=== PATIENT | female | born 1995 | race Caucasian/White ===

== ENCOUNTER 2020-04-26 09:14 | Outpatient (CLI) | payer OTHER, SELFPAY ==
--- NOTE | 2020-04-26 11:00 | NEURO_ITS ---
PATIENT NUMBER: [id number] IMPRESSION: # Complains of paresthesia of right upper extremity # Normal nerve conduction study including f-waves # Normal needle exam # Clinical correlation recommended. MTDD
== END 2020-04-26 09:15 | disposition home or self-care (01) ==
PROVIDERS: PCP Nurse Practitioner Adult Health; Visit Provider Family Medicine
DX: R20.2 Paresthesia of skin (principal)
CPT/HCPCS: 95886; 95909

== ENCOUNTER → 2021-03-05 02:17 | Outpatient (CLI) | payer OTHER, SELFPAY ==
[2021-03-06 15:33] LABS: SARS-CoV-2 RNA PCR Negative
== END ==
PROVIDERS: PCP Nurse Practitioner Adult Health; Visit Provider Nurse Practitioner Adult Health
DX: J02.9 Acute pharyngitis, unspecified (principal); Z20.822 Contact with and (suspected) exposure to COVID-19
CPT/HCPCS: C9803; U0003; U0005

== ENCOUNTER 2023-05-27 08:11 | Outpatient (CLI) | payer OTHER, SELFPAY ==
[2023-05-27 18:34] LABS: Mean Corpuscular HGB Conc 32.5 g/dl (32-36); Mean Corpuscular Volume 89.1 fl (80-100); Platelet Count Result 323 k/mm3 (150-375); Red Blood Count 4.49 M/mm3 (4.2-5.4); Red Cell Distribution Width 13.2 % (11.5-14.5); White Blood Count 10.7 K/mm3 (4.5-10.0)
[2023-05-27 20:22] LABS: Hemoglobin A1C 4.8 % (<5.7)
[2023-05-27 21:28] LABS: Alanine Aminotransferase 14 U/L (6-35); Albumin Level 4.5 g/dL (3.5-5.1); Alkaline Phosphatase 58 U/L (38-126); Anion Gap 10 mmol/L (8-16); Aspartate Amino Transferase 24 U/L (14-36); Bilirubin,Total 0.7 mg/dL (0.2-1.3); Blood Urea Nitrogen 9 mg/dL (7-17); Calcium 9.1 mg/dL (8.4-10.2); Carbon Dioxide 26 mmol/L (22-30); Chloride 101 mmol/L (98-107); Cholesterol 194 mg/dL (0-200); Estimated Glomerular Filt Rate > 60; Glucose 82 mg/dL (65-110); HDL Direct 35 mg/dL; Potassium 4.1 mmol/L (3.4-5.0); Sodium 137 mmol/L (137-145); Triglycerides 136 mg/dL (<150)
[2023-05-27 21:38] LABS: LDL Cholesterol Direct 117 mg/dL
[2023-05-27 21:58] LABS: Thyroid Stimulating Hormone 0.845 uIU/mL (0.465-4.680)
== END 2023-05-27 08:12 | disposition home or self-care (01) ==
PROVIDERS: PCP Nurse Practitioner Adult Health; Visit Provider Nurse Practitioner Adult Health
DX: F41.9 Anxiety disorder, unspecified (principal); E11.9 Type 2 diabetes mellitus without complications; E55.9 Vitamin D deficiency, unspecified; E53.8 Deficiency of other specified B group vitamins
CPT/HCPCS: 36415; 80053; 80061; 82306; 82607; 83036; 84443; 85027

== ENCOUNTER 2025-04-22 07:46 | Emergency (ER) | payer OTHER, SELFPAY ==
--- OUTSIDE RECORDS SUMMARY | 2008-09-23 19:00 | XMS_ITS | Continuity of Care Document ---
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 [address] [place] [address], [id number], [place]. Family History Family Member Type Diagnosis Age At Onset No Information Immunizations Vaccine Date Status Comments DTAP administered Note: RA ; Sour ce: New Immunization Record [id number], PED/ADL administered Note: LA ; Source: N ew Immunization Record INJECTABLE POLIOVIRUS administered Note: RA ; Source: New Immunization Record HEP B VACCINE PED/ADOL administered Note: LA ; Source: New Immunization Record DTAP administered Note: RA ; Sour ce: New Immunization Record [id number], PED/ADL administered Note: LA ; Source: N ew Immunization Record ORAL POLIO administered Note: PO ; Sour ce: New Immunization Record HEP B VACCINE PED/ADOL administered Note: LA ; Source: New Immunization Record Payers Payer name Insurance type Covered democrat ID Authoriza tion(s) No Information Social History Type Description Quantity Date Captured Comments Sex Female Smoking Status No Information Chief Complaint And Reason For Visit No Information History Of Present Illness Encounter Date Complaint History Of Prese nt Illness No Information Instructions Date Instruction Additional Infor rubyion No Information Assessments Type Assessment Date No Information Patient Care Teams Name Effective Dates (start - stop) Status Members No Information
--- NOTE | ~2025-04-22 | XR_ITS ---
Examination: XR chest 2V Clinical History: Possible aspiration Comparison: None Technique: PA and Lateral Findings: Cardiomediastinal silhouette normal size and configuration. Lungs clear. No acute bony abnormality. IMPRESSION: 1. No acute cardiopulmonary findings. Reviewed, dictated and finalized at location R.
[2025-04-22 07:55] VITALS: BP 141/85; PULSE 94; RESP 18; TEMP 36.4; O2SAT 100
--- OUTSIDE RECORDS SUMMARY | 2025-04-22 09:25 | XMS_ITS | Clinical Summary ---
Author Organization [facility] [address] Address [address] [place] [address] Care Team Providers Care Residential Construction Instructor Name Role Phone Chata Guaman NP Primary Care Provider [phone] Allergies No known active allergies Medications cholecalciferol (VITAMIN D-3) 50,000 unit capsule Take 1 capsule (50,000 Units total) by mouth once a week Active cyanocobalamin (Vitamin B-12) 1,000 mcg tabletIndicatio ns:Prevention of Vitamin B12 Deficiency Take 1 tablet (1,000 mcg total) by mouth daily Active glucagon (Gvoke HypoPen 2-Pack) 1 mg/0.2 mL auto-injectorIn dications:hypog lycemic disorder Inject 1 mg under the skin as needed (for severe hypoglycemia requiring the assistance of another.) 0.4 mL 3 4 Active FreeStyle Isidro 3 Sensor device 4 Active FLUoxetine (PROzac) 20 mg tablet 3 Active doxepin (SINEquan) 10 mg capsule TAKE ONE CAPSULE BY MOUTH NIGHTLY 90 capsule 2 4 Active dulaglutide (TRULICITY) 0.75 mg/0.5 mL pen injector Inject 0.5 mL (0.75 mg total) under the skin every 7 days 2 mL 6 5 Active meloxicam (MOBIC) 7.5 mg tablet Take 1 tablet (7.5 mg total) by mouth daily 30 tablet 5 Active norethindrone-e .estradioL-iron (Junel FE ,) 1 mg-20 mcg (21)/75 mg (7) per tablet Take 1 tablet by mouth daily 84 tablet 3 Active doxepin (SINEquan) 10 mg capsuleIndicati ons:Middle insomnia TAKE 1 CAPSULE NIGHTLY. 90 capsule 3 5 Active Active Problems Problem Noted Date Diagnosed Date Severe obesity 08/23/2024 freestyle isidro 3 continuous glucose monitoring device 03/07/2024 Assessment & Plan (03/07/2024 12:48 PM CDT): Continuous glucose monitor (cgm) applied from 02/22 to 03/07/2024 This device was placed for monitor and treatment of blood sugar. Interpretation of data- average glucose 91. In target range 83%. 0 hyperglycemia. 14% hypoglycemia with blood sugars between 54 and 69. 3% hypoglycemia with blood sugars below 54. Acute chest pain 11/20/2023 Sore throat 10/27/2022 Assessment & Plan (10/27/2022 3:34 PM CDT): Acute problem, present times 5-6 days, accompanied by URI symptoms times about 3 days Physical examination as documented - no signs/symptoms of serious illness noted COVID 19 and influenza A/B in office - ALL negative Rapid strep in office - negative Suspect possible strep vs viral etiology Recommended empiric treatment for strep throat based on PE findings and onset of sore throat PRIOR to URI symptoms - patient agreeable to plan Orders for AMS STAFF to arrange None at this time Orders for Calista Molina to arrange Start amoxicillin as prescribed - complete course, take with food and probiotic to prevent stomach upset and diarrhea Continue OTC DayQuil/NyQuil as needed for symptoms Continue OTC pain medications as needed for discomfort Consider adding intranasal steroids (such as Flonase or Nasacort) to regimen - can use twice daily for 1-2 weeks during acute symptoms Consider adding salt water gargles multiple times daily Stay hydrated, eat well, rest as needed Continue monitoring symptoms - report persistent or worsening symptoms to the office or go to ER Follow up as scheduled with Dr. Bautista or sooner if necessary Adult BMI 33.0-33.9 kg/sq m 08/29/2022 Chronic fatigue 08/29/2022 Iron deficiency 08/22/2022 Assessment & Plan (08/22/2022 8:32 AM ELECTRO OPTICS ENGINEER): History of iron-deficiency associated with menses. Patient has a chronically low normal hemoglobin/hematocrit. Ddx: Iron deficiency versus thalassemia minor - will check iron panel Postural dizziness with presyncope 07/21/2022 Assessment & Plan (07/21/2022 2:54 PM ELECTRO OPTICS ENGINEER): Likely related to low blood sugar or low BP issues. Continue to wean off Trulicity, discussed quitting abruptly if pre-syncopal episodes become more frequent. Last labs in April were unremarkable. No abnormal exam findings. Stay hydrated-educated on AMA recommendations for water intake. Salty snacks will help to raise BP quickly. Discussed recommendations of when to go to ER for acute care. Monitor symptoms carefully. Follow up in 1 month, sooner if needed. Generalized anxiety disorder 06/11/2022 Assessment & Plan (04/01/2024 8:53 AM CDT): Change the Prozac to morning admin time to limit nocturnal arousals. Middle insomnia 06/11/2022 Assessment & Plan (08/19/2024 12:12 PM ELECTRO OPTICS ENGINEER): Great response to medication change., prozac in am, change to doxepin for sleep maintenance. Low dose is doing well. We discussed the lower 3 and 6mg dosing but may still be too costly even with Goodrx, will defer to her is she wishes to try to titrate the dose down slightly. Assessment & Plan (04/01/2024 9:00 AM CDT): Written instructions provided to patient today: Goal schedule over time: 1. Melatonin 30 min to 1 hour before scheduled bedtime. 2. Bedroom is for sleep only, no TV, bright lights, no reading in bed books or iPad. TV in common living area only. 3. Bedtime 10pm (based on current hx), Schedule melatonin at 8pm 4. Goal is no naps: - if naps, set alarm so nap max time is 1hr and NO nap after 3 pm 5. NO TV/computer after 8 pm - consider equal to bright sunlight 6. During day: brighlight exposure, sunshine preferred. 7. Wearing sunglasses in the evening starting 3hours before scheduled sleep time Will trial Doxepin 3mg tablets, may cut in 1/2 to start for 1 week, then go to 1 full tablet at 9:30pm. Will keep a 2 week sleep diary to help understand her sleep timing etc etc. Continue the trazodone for now, no changes nightly. Hold on refill for now, pending doxepin response, may wean off. Hypersomnia 06/11/2022 Restless sleeper 06/11/2022 Anxiety 10/16/2021 Assessment & Plan (07/11/2022 4:09 PM ELECTRO OPTICS ENGINEER): Chronic. PHQ 2 score 0 сергей 7 score 10. Moderate anxiety -start BuSpar 5 mg twice daily risks/benefits and alternatives discussed - re-evaluate at follow-up in 6 weeks Vitamin B12 deficiency (non anemic) 03/04/2021 Migraine 10/09/2020 Tear of right acetabular labrum 08/09/2019 Trochanteric bursitis of right hip 05/10/2019 Hypertriglyceridemia 05/25/2018 Assessment & Plan (07/11/2022 4:10 PM ELECTRO OPTICS ENGINEER): Chronic and stable. Continue current medication. 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 Hypoglycemia has been ongoing for over 1 yr. Hypoglycemia has improved but continues during the night with blood sugars in the 50's. She has had a 22 lb weight gain in the last year. Not on any diabetes medications. She has seen the dietitian for a consistent carb diet. Nocturnal hypoglycemia per freestyle isidro 3 83% time in range. 14% hypoglycemia with blood sugars 54-69 3% very low hypoglycemia with blood sugars less than 54 Average blood sugar 91. Amb referral to Dr. Roth. 12/04/22 07:30 C-Peptide, Serum: 4.96 (H) (H): Data is abnormally high 12/04/22 07:30 Insulin: 36.4 (H) (H): Data is abnormally high Assessment & Plan (01/05/2023 4:58 PM CDT): This is a chronic condition which is at goal of less than 7%. Personally reviewed most recent A1c - Lab Results Component Value Date HGBA1C 5.9 (H) 12/04/2022 Personally reviewed POC blood sugar- not at goal 80-180 Lab Results Component Value Date POCGLU 73 01/05/2023 Medication- none Monitor blood sugar 3x times a day. Will refer to Ann-Marie chaudhary at [facility] for continuous glucose monitoring. Encouraged annual eye exam. Monofilament foot exam completed. protective senses intact Personally reviewed CMP eGFR- 123 Kidney function- normal Urine microalbumin/creatinine ratio -at goal <30 not treated with MICHAEL/ARB B/P today- at goal of <140/90. Personally reviewed lipid panel. Not at Goal of less than 70. Not on statin therapy. Patient at childbearing age Assessment & Plan (11/21/2022 5:23 PM CDT): Dm type 2 with (no complications) Recent A1C 4.7 (07/2022)No Neuropathy on initial foot exam Continue low carb diet. Next A1C - 01/2022. Consider metformin ER in future if needed Most recent Microalbumin - WNL Dilated retinal eye exam - 07/2022 BP at goal <130/80 off ACEI - Continue to monitor Vaccines - COVID booster recommended Most recent shakiness unlikely related to diabetes given glucose level normal when checked. If symptoms persist will obtain additional labs. Patient will continue to monitor and follow-up as needed Assessment & Plan (08/22/2022 8:34 AM ELECTRO OPTICS ENGINEER): Dm type 2 with (no complications) Recent A1C 4.7 No Neuropathy on initial foot exam Continue low carb diet. Patient will self refer to [facility] resource recovery specialist for counseling Next A1C - 10/2021. Consider metformin ER in future if needed Most recent Microalbumin - WNL Dilated retinal eye exam - up-to-date, request notes BP at goal <130/80 off ACEI - Continue to monitor Vaccines - COVID booster recommended Assessment & Plan (07/21/2022 2:57 PM ELECTRO OPTICS ENGINEER): Recent pre-syncopal episode noted, no abnormal exam findings. Likely related to low BP or low blood sugar. Continue to wean Trulicity as instructed, discussed quitting abruptly if pre-syncopal episodes become more frequent. See plan for dizziness/syncope above. Follow in 1 month with repeat labs, sooner if needed. Assessment & Plan (07/11/2022 4:12 PM ELECTRO OPTICS ENGINEER): Dm type 2 with (no complications) Recent A1C 4.8 No Neuropathy on foot exam Continue low carb diet Next A1C - 07/2021 Most recent Microalbumin - due now, ordered Given A1c very tightly controlled and patient with hypoglycemic episode will taper down Trulicity and monitor. Patient will take 3 mg weekly x2 weeks then decrease to 1.5 mg weekly. Continue to monitor fasting blood sugars with a range of 70-100 Dilated retinal eye exam -Due now, referral placed BP at goal <130/80 off ACEI - Continue to monitor Vaccines - COVID booster recommended Vitamin D deficiency 05/25/2018 Assessment & Plan (08/22/2022 8:33 AM ELECTRO OPTICS ENGINEER): Chronic and stable. Recommend vitamin-D 1000 IU daily. Repeat vitamin-D lab 6 months Assessment & Plan (07/11/2022 4:10 PM ELECTRO OPTICS ENGINEER): Chronic and stable. Continue current medication. Will obtain lab and adjust meds prn Resolved Problems Problem Noted Date Diagnosed Date Resolved Date Loud snoring 06/11/2022 07/21/2022 Hemorrhoids 07/22/2021 07/21/2022 Hyperinsulinism 05/10/2020 03/07/2024 Assessment & Plan (01/05/2023 5:00 PM CDT): This is a chronic condition which is worsening. Reports increased hypoglycemia with symptoms 12/04/22 07:30 C-Peptide, Serum: 4.96 (H) (H): Data is abnormally high 12/04/22 07:30 Insulin: 36.4 (H) (H): Data is abnormally high Will obtain a diagnostic CGM. It band syndrome, right 05/10/201906/27 Right groin pain 05/10/2019 07/21/2022 No pathologic diagnosis 12/10/201306/27 Overview (10/29/2016): No diagnosis Encounters Date Type Department Care Team Description 03/14/2025 Orders Only [facility] [address] [place] [address] Alexander Price, Middle insomnia (Primary Dx) 01/30/2025 Telephone [employer] [address] [facility] [facility] [address] [place] [address] Jen Wood, LACING STRING CUTTER from Last 3 Months Immunizations Immunization Administration Dates Next Due DTP / HiB 08/26/1995, 5,1994,07/29 HPV, Bivalent 02/21/2009 HPV, Quadrivalent 10/24/2009,04/25/2009 Hep A, Unspecified 10/24/2009,02/21/2009 Hep B Vaccine 01/26/2019,09/08/2018,08/04/2018 Hep B, Adolescent or Pediatric 1994,1993 Influenza, Quadrivalent, Spl it, Preservative Free, Intramuscular 05/25/2018 Influenza, Unspecified 05/05/2022 MMR 06/08/1995 Meningococcal ACWY, Unspecified 02/21/2009 OPV 1995,1994,1994 Pneumococcal Conjugate Pcv20 12/07/2021 Td, adsorbed 02/21/2009 Tdap 07/28/2018 Surgical History Surgery Date Site/Laterality Comments FLUORO GUIDED INJECTION HIP RIGHT 02/06/2021 Right Medical History Medical History Date Comments Diabetes Diagnosed 2017 Anemia Anxiety Depression Family History Medical History Relation Name Comments Diabetes Father Sammy molina Diabetes melli tus; Anemia Mother Conchita bello Anemia; Diabetes Paternal Grandfather Tru molina Diabet es mellitus; Asthma Paternal Grandmother Yumiko molina Asthma ; Relation Name Status Comments Father Sammy molina Mother Conchita bello Paternal Grandfather Tru molina Paternal Grandmother Yumiko molina Social History Tobacco Use Types Packs/Day Years Used Date Smoking Tobacco: Never Smokeless Tobacco: Never Tobacco Cessation:Counseling Given: Not Answered Alcohol Use Standard Drinks/Week Comments No 0 (1 standard drink = 0.6 oz pur e alcohol) Humiliation, Afraid, Rape, and Kick questionnair e Answer Date Recorded Within the last year, have y ou been afraid of your partner or ex-partner? No 05/24/2024 Within the last year, have y ou been humiliated or emotionally abused in other ways by your partner or ex-partner? No Within the last year, have y ou been kicked, hit, slapped, or otherwise physically hurt by your partner or ex-partner? No 05/24/2024 Within the last year, have y ou been raped or forced to have any kind of sexual activity by your partner or ex-partner? No 05/24/2024 AUDIT-C Answer Date Recorded Q1: How often do you have a drink containing alc ohol? Monthly or less 07/11/2022 Q2: How many drinks containi ng alcohol do you have on a typical day when you are drinking? 1 or 2 07/11/2022 Q3: How often do you have si x or more drinks on one occasion? Never 07/11/2022 PHQ-2 Answer Date Recorded PHQ-2 Total Score (If total score is 3 or more points, staff should administer the PHQ-9) 0 05/24/2024 Personal Safety Answer Date Recorded Have you ever been in or are you currently in a harmful physical or emotional relationship or is someone making you feel afraid or unsafe? Denies 11/20/2023 Comments No Sex and Gender Information Value Date Recorded Sex Assigned at Not on file Legal Sex Female 5:48 PM ELECTRO OPTICS ENGINEER Gender Identity Not on file Sexual Orientation Not on file Obstetrics History Para Term AB IAB SAB Ectopic Multiple Livin g Live Births 0 0 0 0 0 0 0 0 0 0 0 Last Filed Vital Signs Vital Sign Reading Time Taken Comments Blood Pressure 112/78 11/23/2024 7:58 AM CDT Pulse 83 11/23/2024 7:58 AM CDT Temperature 36.8 C (98.3 F) 09/08/2024 12:26 PM ELECTRO OPTICS ENGINEER Respiratory Rate 18 09/08/2024 12:2 6 PM ELECTRO OPTICS ENGINEER Oxygen Saturation 97% 09/08/2024 12: 26 PM ELECTRO OPTICS ENGINEER Inhaled Oxygen Concentration - - Weight 115.4 kg (254 lb 6.4 oz) 11/23/2024 7:58 AM CDT Height 170.2 cm (5' 7) 11/23/2024 7:58 AM CDT Body Mass Index 39.84 11/23/2024 7:58 AM CDT Plan of Treatment Health Maintenance Due Date Last Done Comments Hepatitis C Screening 1995 Varicella Vaccines (1 of 2 - 13+ 2-dose series) 2007 Albumin Creatinine Ratio, Urine 02/17/2025 , 08/15/2022 Lipid Panel 02/17/2025 02/18/2024, 10/25, 08/15/2022, Additional history exists Foot Exam 03/07/2025 03/07/2024, 01/05/2023 Covid-19 Vaccine (3 - 2024-2 6 season) 2025 12/07/2021, 11/16/2021 Influenza Vaccine (#1) 2025 , 05/05/2022, 05/25/2018 eGFR 05/12/2025 05/12/2024, 10/2023, 02/18/2024, Additional history exists Cervical Cancer Screening 05/24/20252023, 05/22/2023, 05/14/2022, Additional history exists Depression Screening 05/24/2025 05/24/2024, 05/22/2023, 07/11/2022, Additional history exists Regular Well Visit/Exam 18-64 05/24/2025, 05/22/2023, 05/14/2022, Additional history exists Hemoglobin A1C 05/25/2025 11/23/2024, 07/28, 02/18/2024, Additional history exists Dilated Eye Exam 09/17/2025 09/17/2023, 07/29/2022 DTaP/Tdap/Td Vaccine (6 - Td or Tdap) 07/28/2028 07/28/2018, 02/21/2009, 08/26/1995, Additional history exists HPV Vaccines Completed 10/24/2009, 03/29, 02/21/2009 Hepatitis B Screening Completed 01/26/2019 , 09/08/2018, 08/04/2018, Additional history exists Pneumococcal vaccine <65 Completed 12/07/2021 Procedures Procedure Name Priority Date/Time Associated Diagnosis Comments POCT HEMOGLOBIN A1C Routine 11/23/2024 8 :09 AM CDT Type 2 diabetes mellitus without complication, without long-term current use of insulin (HCC) PAP WITH REFLEX TO HIGH RISK HPV Routine 05/24/2024 9:05 AM CDT Well woman exam EGFR Routine 05/12/2024 11:48 AM CDT Hypoglycemia ALBUMIN CREATININE RATIO, URINE Routine 02/18/2024 7:55 AM CDT LIPID PANEL Routine 02/18/2024 7:29 AM CDT DIABETIC EYE EXAM Routine 09/17/2023 from Last 3 Months or Most Recently Relevant to Health Maintenance Results * POCT hemoglobin A1c (11/23/2024 8:09 AM CDT) Hemoglobin A1C, POC 5.7 4.0 - 5.6 % Blood 11/23/2024 8:09 AM CDT Luis Roth DO POINT OF CARE TEST ORDERABL ES Final Result * Pap with reflex to High Risk HPV and Genotyping (Cytology Component) (05/24/2024 9:05 AM CDT) Thin prep (Pap test) 05/24/2024 9:05 AM CDT 05/25/2024 9:05 AM CDT Narrative PATHOLOGY CH - 05/26/2024 10:16 AM CDT [facility] Department of Pathology [address] [place] [address], [place] [address] Final Report Note to Patients: This report may contain a detailed description of human tissue sent by a health care provider to the laboratory for pathologic evaluation. The content of this report is essential for diagnosis and may provide important critical findings. This information may be unfamiliar to patients to review without a medical professional present. It is advised that the patient review this report in the presence of a health care provider who can answer questions and explain the details. Patient Name: CALISTA MOLINA Address: [address] [place], [place] [id number] Gender: F : 1995 (Age: 28) Service: Location: N : [id number] [facility] #: [id number] Patient Type: SPECIMEN Taken: 05/24/2024 Received: 05/25/2024 Accessioned:: 05/25/2024 Reported: 05/26/2024 Physician(s): HOLLIS Steward WHNP Diagnosis: SOURCE OF SPECIMEN Imaged Thinprep Pap Test w/ Reflex HPV - Account Support Associate Cytologic Material: STATEMENT OF ADEQUACY - Specimen satisfactory for interpretation; endocervical/transformation zone component absent or insufficient GENERAL CATEGORIZATION: - Negative for intraepithelial lesion or malignancy INTERPRETATION: - Predominance of coccobacilli consistent with shift in vaginal tai. Possible bacterial vaginosis CITLALY Willard(ASCP) Report Electronically Reviewed and Signed Out By CITLALY Willard(ASCP) 05/26/2024 10:16:07Specimen(s) Received: A: Imaged Thinprep Pap Test w/ Reflex HPV - Account Support Associate Cytologic Material Clinical History: Last Menstrual Period: 05/10/2024 The Pap test is a screening test used to aid in the detection of cervical cancer and its precursors. It should not be the sole means by which malignant and premalignant lesions are diagnosed. Both false negative and false positive results may occur. It also has poor sensitivity for the detection of endometrial lesions and should not be used to evaluate suspected endometrial abnormalities. For these reasons it is most important to obtain Pap tests at regular intervals. The performance characteristics of some immunohistochemical stains, fluorescence in-situ hybridization tests and immunophenotyping by flow cytometry cited in this report (if any) were determined by the Surgical Pathology Department at [facility] as part of an ongoing water quality control engineer program and in compliance with federally mandated regulations drawn from the Clinical Laboratory Improvement Act of 1988 (CLIA '88). Some of these tests rely on the use of analyte specific reagents and are subject to specific labeling requirements by the US Food and Drug Administration. Such diagnostic tests may only be performed in a facility that is certified by the Department of Health and Human Services as a high complexity laboratory under CLIA '88. The FDA has determined that such clearance or approval is not necessary. This test is used for clinical purposes. It should not be regarded as investigational or for research. Nevertheless, federal rules concerning the medical use of analyte specific reagents require that the following disclaimer be attached to the report: This test was developed and its performance characteristics determined by the Surgical Pathology Department [facility]. It has not been cleared or approved by the U. S. Food and Drug Administration. Jen Wood NP LAB CYTOLOGY ORDERABLES Fin al Result PATHOLOGY [place] [id number] * eGFR (05/12/2024 11:48 AM CDT) eGFR >90 >=60 mL/min/1. 73 m2 Comment: Interpretive Data Reference Interval Normal >/= 90 mL/min/1.73m2 Mildly decreased* 60 - 89 mL/min/1.73m2 Mildly to moderately decreased 45 - 59 mL/min/1.73m2 Moderately to severely decreased 30 - 44 mL/min/1.73m2 Severely decreased 15 - 29 mL/min/1.73m2 Kidney Failure < 15 mL/min/1.73m2 *Relative to young adult level Estimated glomerular filtration rate is determined by the 2020 CKD-EPI equation recommended by the National Kidney Foundation (A Unifying Approach to GFR Estimation: Recommendations of the NKF-ASK Task Force on Reassessing the Inclusion of Race in Diagnosing Kidney Disease, JASN 2020). The CKD-EPI equation should not be used for patients with unstable renal function and has not been validated in children and those over 70. Current interpretive data was last reviewed 2021. Testing performed by: [facility], [address] [place] [address]., [id number] Blood 05/12/2024 11:4 8 AM CDT 05/12/2024 7:16 PM CDT us Luis Roth DO LAB BLOOD ORDERABLES Final Result Performing Organization Address City/[facility]/ZIP Co de Phone Number [facility] [address] Department [place] [address] * Albumin Creatinine Ratio, Urine (02/18/2024 7:55 AM CDT) Albumin Ur 26.1 mg/L Comment: Interpretive Data No reference range established. Current interpretive data was last revised 2018. Testing performed by: [facility], [address] [place] [address]., [id number] Creatinine Ur 192.4 mg/dL [facility] BARRETT ([place]) Comment: Interpretive Data No reference range established. Current interpretive data was last revised 2018. Testing performed by: [address] [address] Albumin Creatinine Ratio, Ur 14 1 - 29 mg/g [facility] BARRETT ([place]) Comment:Testing performed by : [facility], [address] [place] [address]., [id number] Urine 02/18/2024 7:55 AM CDT 02/18/2024 1:59 PM CDT Narrative [facility] BARRETT ([place]) - 02/18/2024 3:29 PM CDT [phone] us Chata Guaman NP LAB URINE ORDERABLES Final Res ult [facility] [address] [facility] Department [place] [address] * Lipid panel (02/18/2024 7:29 AM CDT) Cholesterol 161 30 - 199 mg/dL Comment: Interpretive Data Ages < or = 19 years Acceptable: <170 mg/dL Borderline high: 170-199 mg/dL High: >or= 200 mg/dL Ages > or = 20 years Desirable: <200 mg/dL Borderline high: 200-239 mg/dL High: >or= 240 mg/dL Literature References: 1. Expert Panel on Integrated Guidelines for Cardiovascular Health and Risk Reduction in Children and Adolescents. Pediatrics 2011;128:S213 2. NCEP Expert Panel. Circulation 2004;110:227 Current Interpretive Data was last revised on 2018. Triglycerides 115 <=149 mg/dL [facility] BARRETT ([place]) Comment: Interpretive Data Ages < or = 9 years Acceptable: <75 mg/dL Borderline high: 75-99 mg/dL High: >or= 100 mg/dL Ages 10 to 20 years Acceptable: <90 mg/dL Borderline high: 90-129 mg/dL High: >or= 130 mg/dL Ages > or = 20 years Desirable: <150 mg/dL Borderline high: 150-199 mg/dL High: 200-499 mg/dL Very high: >or= 499 mg/dL Literature References: 1. Expert Panel on Integrated Guidelines for Cardiovascular Health and Risk Reduction in Children and Adolescents. Pediatrics 2011;128:S213 2. NCEP Expert Panel. Circulation 2004;110:227 Current Interpretive Data was last revised on 2018. HDL 49 >=40 mg/dL [facility] [place] ([place]) Comment: Interpretive Data Ages < or = 19 years Acceptable: >45 mg/dL Borderline low: 40-45 mg/dL Low: <40 mg/dL Ages > or = 20 years Desirable: >or= 60 mg/dL Low: <40 mg/dL Literature References: 1. Expert Panel on Integrated Guidelines for Cardiovascular Health and Risk Reduction in Children and Adolescents. Pediatrics 2011;128:S213 2. NCEP Expert Panel. Circulation 2003;110:227 Current Interpretive Data was last revised on 2018. LDL, calculated 89 <=129 mg/dL OBDULIA BARRETT ([place]) Comment: Interpretive Data Ages < or = 19 years Acceptable: <110 mg/dL Borderline high: 110-129 mg/dL High: >or= 130 mg/dL Ages > or = 20 years Optimal: <100 mg/dL Near optimal: 100-129 mg/dL Borderline high: 130-159 mg/dL High: >160 mg/dL Literature References: 1. Expert Panel on Integrated Guidelines for Cardiovascular Health and Risk Reduction in Children and Adolescents. Pediatrics 2011;128:S213 2. NCEP Expert Panel. Circulation 2003;110:227 Current Interpretive Data was last revised on 2018. Non-HDL Cholesterol 112 mg/dL OBDULIA BARRETT ([place]) Comment: Interpretive Data Ages < or = 19 years Acceptable: <120 mg/dL Borderline high: 120-144 mg/dL High: >145 mg/dL Ages > or = 20 years When triglycerides are >200 mg/dL, Non-HDL cholesterol is a secondary target of therapy with treatment goals that are 30 mg/dL greater than the LDL cholesterol target. Literature References: 1. Expert Panel on Integrated Guidelines for Cardiovascular Health and Risk Reduction in Children and Adolescents. Pediatrics 2011;128:S213 2. NCEP Expert Panel. Circulation 2004;110:227 Current Interpretive Data was last revised on 2018. Chol/HDL ratio 3 JESSIE BARRETT ([place]) Blood 02/18/2024 7:29 AM CDT 02/18/2024 8:19 AM CDT Chata Guaman NP LAB BLOOD ORDERABLES Final Res ult OBDULIA BARRETT ([place]) 1 [facility] Department [place] [address] * Diabetic Eye Exam (09/17/2023) Historical Provider HEALTH MAINTENANCE Final Result from Last 3 Months or Most Recently Relevant to Health Maintenance Insurance [facility] [employer]ANS Address: [facility] [id number] [place] [address] [employer] [facility] [employer] [employer] Address: [facility] [id number] [place] [address] Care Teams Residential Construction Instructor Relationship Specialty Start Date End Date Chata Guaman NP [address] [place] [address] [place] [address] PCP - General Nurse Practitioner 01/05/23
--- OUTSIDE RECORDS SUMMARY | 2025-04-22 09:25 | XMS_ITS | Encounter Summary ---
Author Organization [facility] Healthcare Address [address] [place] [address] Care Team Providers Care Human Resources Operations Manager Name Role Phone Chata Guaman NP Primary Care Provider Haley Bautista MD Primary Care Provider [phone] Chata Guaman NP Primary Care Provider [phone] Encounter Details Date Type Department Care Team (Late st Contact Info) Description 02/05/2021 Telephone [facility] [address] [place] [phone] Sharon Birch, RT Social History Tobacco Use Types Packs/Day Years Used Date Smoking Tobacco: Never Smokeless Tobacco: Never Alcohol Use Standard Drinks/Week Comments No 0 (1 standard drink = 0.6 oz pur e alcohol) PHQ-2 Answer Date Recorded PHQ-2 Total Score (If total score is 3 or more points, staff should administer the PHQ-9) 0 04/04/2020 Comments No Sex and Gender Information Value Date Recorded Sex Assigned at Not on file Legal Sex Female 5:48 PM MATHEMATICS LECTURER Gender Identity Not on file Sexual Orientation Not on file documented as of this encounter Plan of Treatment Not on file documented as of this encounter Visit Diagnoses Not on filedocumented in this encounter Additional Health Concerns Infection Onset Date Last Indicated Resolved Time COVID: Suspected 06/22/2022 06/22/2022 06/23/2022 2:57 AM MATHEMATICS LECTURER COVID: Suspected 10/27/2022 10/27/2022 10/27/2022 3:33 PM CDT COVID: Suspected 05/16/2024 05/16/2024 05/16/2024 1:50 PM CDT COVID: Suspected 09/08/2024 09/08/2024 09/08/2024 12:43 PM MATHEMATICS LECTURER Influenza, adult 09/08/2024 09/08/2024 09/15/2024 3:05 AM MATHEMATICS LECTURER documented as of this encounter Care Teams Human Resources Operations Manager Relationship Specialty Start Date End Date Chata Guaman NP PCP - General Nurse Practitioner 03/23/19 07/10/22 Haley Bautista MD PCP - General Family Practice 07/11/22 01/04/23 Chata Guaman NP [address] [place] [address] [place] [address] PCP - General Nurse Practitioner 01/05/23 documented as of this encounter
--- OUTSIDE RECORDS SUMMARY | 2025-04-22 09:25 | XMS_ITS | Clinical Summary ---
Author Organization [facility] Address [address] [place] [address] Phone Care Team Providers Care Inspector Poising Name Role Phone Chata Guaman APRN Primary Care Provider [phone] Allergies No known active allergies Medications naproxen (NAPROSYN) 500 MG Tablet Take 1 Tab by mouth 2 times daily as needed for Pain. 20 Tab 0 09/18/2016 Active metFORMIN (GLUCOPHAGE) 500 MG Tablet Take 500 mg by mouth 2 times daily (with meals). Active Cyanocobalamin (VITAMIN B-12 PO) Take by mouth. Active vitamin D (CHOLECALCIFEROL ) 1000 UNIT Tablet Take 1,000 Units by mouth daily. Active Phentermine HCl 37.5 MG Capsule Take by mouth. Active Multiple Vitamin (MULTIVITAMINS PO) Take by mouth. Active Active Problems No known active problems Social History Tobacco Use Types Packs/Day Years Used Date Smoking Tobacco: Unknown Alcohol Use Standard Drinks/Week Comments No 0 (1 standard drink = 0.6 oz pur e alcohol) Comments No Sex and Gender Information Value Date Recorded Sex Assigned at Not on file Legal Sex Female 9:49 PM CDT Gender Identity Not on file Sexual Orientation Not on file Last Filed Vital Signs Vital Sign Reading Time Taken Comments Blood Pressure 124/77 10/09/2018 5:12 PM CDT Pulse 104 10/09/2018 5:12 PM CDT Temperature 37.1 C (98.7 F) 10/09/2018 4:48 PM CDT Respiratory Rate 18 10/09/2018 5:12 PM CDT Oxygen Saturation 96% 10/09/2018 5:12 PM CDT Inhaled Oxygen Concentration - - Weight 95.3 kg (210 lb) 10/09/2018 4:48 PM CDT Height 170.2 cm (5' 7) 10/09/2018 4:48 PM CDT Body Mass Index 32.89 10/09/2018 4:48 PM CDT Plan of Treatment Health Maintenance Due Date Last Done Comments Hepatitis C Virus (HCV) Screening 1994 Pap Smear 2015 Cervical Cancer Screening (CCS) 2024 HPV/Cotest 2024 Influenza Immunization (#1) 2025 05/25/2018 SARS-COV-2 Immunization (2023- season) 2025 Respiratory Syncytial Virus (RSV) Immunization (Adult) (1 - 1-dose 75+ series) 2069 Meningococcal Immunization (ACWY) Aged Out 02/21/2009 No longer eligible based on patient's age to complete this topic Human Papillomavirus (HPV) Immunization Completed 10/24/2009, 04/25/2009, 02/21/2009 DTaP/Tdap/Td Immunization Discontinued 2018, 02/21/2009, 08/26/1995, Additional history exists TdaP Immunization Completed 07/28/2018 Hepatitis B Immunization Completed 019, 09/08/2018, 08/04/2018, Additional history exists Pneumococcal Immunization Combined Aged Out No longer eligible based on patient's age to complete this topic Rotavirus Immunization Aged Out No lo nger eligible based on patient's age to complete this topic Insurance MEDICAID [facility] Care Teams Inspector Poising Relationship Specialty Start Date End Date Chata Guaman APRN PCP - General Advanced Practice Nurse 10/09/18
--- OUTSIDE RECORDS SUMMARY | 2025-04-22 09:25 | XMS_ITS | Encounter Summary ---
Author Organization [facility] Address [address] [place] [address] Phone Care Team Providers Care Tooth Grinder Name Role Phone Haley Bautista MD Primary Care Provider [phone] Chata Guaman NP Primary Care Provider [phone] Encounter Details Date Type Department Care Team (Late st Contact Info) Description 07/29/2022 Orders Only [facility] [address] [place] [address] Scanning, Provider Social History Tobacco Use Types Packs/Day Years Used Date Smoking Tobacco: Never Smokeless Tobacco: Never Alcohol Use Standard Drinks/Week Comments No 0 (1 standard drink = 0.6 oz pur e alcohol) Humiliation, Afraid, Rape, and Kick questionnair e Answer Date Recorded Within the last year, have y ou been afraid of your partner or ex-partner? No 05/14/2022 Within the last year, have y ou been humiliated or emotionally abused in other ways by your partner or ex-partner? No Within the last year, have y ou been kicked, hit, slapped, or otherwise physically hurt by your partner or ex-partner? No 05/14/2022 Within the last year, have y ou been raped or forced to have any kind of sexual activity by your partner or ex-partner? No 05/14/2022 AUDIT-C Answer Date Recorded Q1: How often [...] points, staff should administer the PHQ-9) 0 07/11/2022 Comments No Sex and Gender Information Value Date Recorded Sex Assigned at Not on file Legal Sex Female 5:48 PM TONGUE PRESSER Gender Identity Not on file Sexual Orientation Not on file documented as of this encounter Plan of Treatment Not on file documented as of this encounter Procedures Procedure Name Priority Date/Time Associated Diagnosis Comments PROCEDURE - RESULT 07/29/2022 documented in this encounter Results * PROCEDURE - RESULT (07/29/2022) us Provider Scanning Final Result documented in this encounter Visit Diagnoses Not on filedocumented in this encounter Additional Health Concerns Infection Onset Date Last Indicated Resolved Time COVID: Suspected 10/27/2022 10/27/2022 10/27/2022 3:33 PM CDT COVID: Suspected 05/16/2024 05/16/2024 05/16/2024 1:50 PM CDT COVID: Suspected 09/08/2024 09/08/2024 09/08/2024 12:43 PM TONGUE PRESSER Influenza, adult 09/08/2024 09/08/2024 09/15/2024 3:05 AM TONGUE PRESSER documented as of this encounter Care Teams Tooth Grinder Relationship Specialty Start Date End Date Haley Bautista MD PCP - General Family Practice 07/11/22 01/04/23 Chata Guaman NP [facility] [place] [address] PCP - General Nurse Practitioner 01/05/23 documented as of this encounter
--- NOTE | 2025-04-22 09:40 | ED_ITS ---
HPI - General Adult General Chief complaint: Skin/Abscess/Foreign Body Stated complaint: hard time swallwoing Time Seen by Provider: 04/22/25 09:00 Source: patient Mode of arrival: ambulatory Limitations: no limitations History of Present Illness HPI narrative: 29 years old white female came to the ED with feeling something stuck in her throat intermittently after eating beef jerky 2 weeks ago. Patient denies any fever, chills, nausea, vomiting, shortness of breath or chest pain. 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 Related Data Home Medications ?Medication ?Instructions ?Recorded ?Confirmed ?Last Taken ?Type norethindrone 1 mg-ethinyl 1 tablet PO DAILY 01/08/23 03/28/25 Unknown History estradiol 20 mcg (21)-iron 75 mg (7) tablet (June FE 08/15 ()) doxepin 10 mg capsule 10 mg PO QHS 02/22/25 Unknown History dulaglutide 0.75 mg/0.5 mL 0.75 mg subcut WEEKLY 02/2203/28/25 Unknown History subcutaneous pen injector (Trulicity) Allergies Allergy/AdvReac Type Severity Reaction Status Date / Time No Known Allergies Allergy Verified 04/22/25 09:32 Review of Systems Review of Systems: All systems reviewed & are unremarkable except as noted in HPI and below PMFSH Past Medical History Medical History Diabetes Anxiety Family History Family History Mother Depression Father Diabetes mellitus Sibling Depression Grandparent Lung cancer Grandparent Asthma Diabetes mellitus Social History Social History Smoking status: Never smoker Alcohol intake: never Substance use: never Lack of Transportation: No Lack of Food: Never True Current Housing: I Have Housing Concerned About Future Housing: No Difficulty Paying Gas/Electric Bills: No Difficulty Paying for Meds: No Currently Unemployed: No Education: High School Diploma/GED Difficulty w/ Childcare or Family Care: No Living arrangements: alone Occupation/Education: occupation 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 Musculoskeletal: Normal range of motion, nontender back Neurologic: Alert and oriented ?3, IMAGING SERVICES DIRECTOR is normal as tested, no gross motor deficit Course Vital Signs Vital signs: Vital Signs Temperature 36.4 C 04/22/25 07:55 Pulse Rate 94 04/22/25 07:55 Respiratory Rate 18 04/22/25 07:55 Blood Pressure 141/85 H 04/22/25 07:55 Pulse Oximetry 100 04/22/25 07:55 Oxygen Delivery Room Air 04/22/25 07:55 Temperature 36.4 C 04/22/25 07:55 Pulse Rate 80 04/22/25 11:23 Respiratory Rate 18 04/22/25 11:23 Blood Pressure 146/80 H 04/22/25 11:23 Pulse Oximetry 98 04/22/25 11:23 Oxygen Delivery Room Air 04/22/25 07:55 Medical Decision Making MDM Narrative Medical decision making narrative: Aspiration versus kecia pharyngeal scratch versus retaining foreign body is my concern. Oropharyngeal exam showed no acute abnormality Chest x-ray showed no acute abnormality, referred to shotblast operator for further evaluation Differential Diagnosis Differential Diagnosis: As above Vital Signs Vital Signs: Vital Signs Temperature 36.4 C 04/22/25 07:55 Pulse Rate 94 04/22/25 07:55 Respiratory Rate 18 04/22/25 07:55 Blood Pressure 141/85 H 04/22/25 07:55 Pulse Oximetry 100 04/22/25 07:55 Oxygen Delivery Room Air 04/22/25 07:55 Temperature 36.4 C 04/22/25 07:55 Pulse Rate 80 04/22/25 11:23 Respiratory Rate 18 04/22/25 11:23 Blood Pressure 146/80 H 04/22/25 11:23 Pulse Oximetry 98 04/22/25 11:23 Oxygen Delivery Room Air 04/22/25 07:55 Imaging Data Radiologist's impression: Impressions Chest X-Ray 04/22/25 10:47 IMPRESSION: 1. No acute cardiopulmonary findings. Critical Care Time Critical Care Time Critical Care Time: No Discharge Plan Discharge Clinical Impression: Esophageal foreign body Patient Disposition: Home Condition: Stable Instructions: Esophageal Foreign Body (ED) Additional Instructions: Return if symptoms are worsening , call Dr. Prince for appointment, take Tylenol as as needed for aches and pain, continue home medications. Patient Language: Georgian Prescriptions: No Action Trulicity 0.75 mg/0.5 mL pen injector 0.75 mg subcut WEEKLY doxepin 10 mg capsule 10 mg PO QHS phentermine 37.5 mg tablet 37.5 mg PO DAILY Qty: 30 1RF Rx Instructions: must administer 30 minutes before or 1-2 hours after breakfast norethindrone-e.estradiol-iron [Junel FE 08/15 (28)] 1 mg-20 mcg (21)/75 mg (7) tablet 1 tablet PO DAILY (DME) FreeStyle Isidro 3 Sensor Device See Rx Instructions .ROUTE .COMPLEX Qty: 3 1RF Dose Instruction: USE DIRECTED; CHANGE SENSOR EVERY 2 WEEKS Rx Instructions: USE DIRECTED; CHANGE SENSOR EVERY 2 WEEKS cyanocobalamin (vitamin B-12) 1,000 mcg tablet, sublingual See Rx Instructions .ROUTE .COMPLEX Qty: 90 2RF Dose Instruction: PLACE ONE TABLET UNDER THE TONGUE AND ALLOW TO DISSOLVE FOR AT LEAST 30 SECONDS BEFORE SWALLOWING EVERY DAY Rx Instructions: PLACE ONE TABLET UNDER THE TONGUE AND ALLOW TO DISSOLVE FOR AT LEAST 30 SECONDS BEFORE SWALLOWING EVERY DAY fluoxetine 20 mg tablet See Rx Instructions .ROUTE .COMPLEX Qty: 90 2RF Dose Instruction: TAKE ONE TABLET BY MOUTH EVERY DAY Rx Instructions: TAKE ONE TABLET BY MOUTH EVERY DAY Follow-up/Referrals: Carlos Nieves MD [Physician, Gastroenterology] - 04/24/25 Chata Guaman APRN [Primary Care Provider, Family Practice]
[2025-04-22 11:23] VITALS: BP 146/80; PULSE 80; RESP 18; O2SAT 98
== END 2025-04-22 11:24 | disposition home or self-care (01) ==
PROVIDERS: Emergency Provider Emergency Medicine; PCP Nurse Practitioner Adult Health
DX: R09.A2 Foreign body sensation, throat (principal); E11.9 Type 2 diabetes mellitus without complications; F41.9 Anxiety disorder, unspecified
CPT/HCPCS: 71046; 99283

== ENCOUNTER 2025-04-29 15:17 | Emergency (ER) | payer OTHER, SELFPAY ==
--- OUTSIDE RECORDS SUMMARY | 2008-09-23 19:00 | XMS_ITS | Continuity of Care Document ---
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 [address] [place] [address], [id number], [place]. Family History Family Member Type Diagnosis Age At Onset No Information Immunizations Vaccine Date Status Comments DTAP administered Note: RA ; Sour ce: New Immunization Record [id number], PED/ADL administered Note: LA ; Source: N ew Immunization Record INJECTABLE POLIOVIRUS administered Note: RA ; Source: New Immunization Record HEP B VACCINE PED/ADOL administered Note: LA ; Source: New Immunization Record DTAP administered Note: RA ; Sour ce: New Immunization Record [id number], PED/ADL administered Note: LA ; Source: N ew Immunization Record ORAL POLIO administered Note: PO ; Sour ce: New Immunization Record HEP B VACCINE PED/ADOL administered Note: LA ; Source: New Immunization Record Payers Payer name Insurance type Covered green party ID Authoriza tion(s) No Information Social History [...]
[2025-04-29 15:20] VITALS: BP 136/80; PULSE 93; RESP 20; TEMP 36.6; O2SAT 98
--- OUTSIDE RECORDS SUMMARY | 2025-04-29 15:21 | XMS_ITS | Encounter Summary ---
Author Organization [facility] Healthcare Address [address] [place] [address] Care Team Providers Care Auto Body Repair Teacher Name Role Phone Chata Guaman NP Primary Care Provider [phone] Haley Bautista MD Primary Care Provider [phone] Chata Guaman NP Primary Care Provider [phone] Encounter Details Date Type Department Care Team (Late st Contact Info) Description 02/05/2021 Telephone [facility]) [address] [place] [phone] Sharon Birch, RT Social History Tobacco [...] on file Legal Sex Female 5:48 PM METAL DRILLING MACHINE OPERATOR Gender Identity Not on file Sexual Orientation Not on file documented as of this encounter Plan of Treatment Not on file documented as of this encounter Visit Diagnoses Not on filedocumented in this encounter Additional Health Concerns Infection Onset Date Last Indicated Resolved Time COVID: Suspected 06/22/2022 06/22/2022 06/23/2022 2:57 AM METAL DRILLING MACHINE OPERATOR COVID: Suspected 10/27/2022 10/27/2022 10/27/2022 3:33 PM CDT COVID: Suspected 05/16/2024 05/16/2024 05/16/2024 1:50 PM CDT COVID: Suspected 09/08/2024 09/08/2024 09/08/2024 12:43 PM METAL DRILLING MACHINE OPERATOR Influenza, adult 09/08/2024 09/08/2024 09/15/2024 3:05 AM METAL DRILLING MACHINE OPERATOR documented as of this encounter Care Teams Auto Body Repair Teacher Relationship Specialty Start Date End Date Chata Guaman NP PCP - General Nurse Practitioner 03/23/19 07/10/22 Haley Bautista MD PCP - General Family Practice 07/11/22 01/04/23 Chata Guaman NP [address] [place] [address] [place] [address] PCP - General Nurse Practitioner 01/05/23 documented as of this encounter
--- OUTSIDE RECORDS SUMMARY | 2025-04-29 15:21 | XMS_ITS | Encounter Summary ---
Author Organization [facility] Address [address] [place] [address] Phone Care Team Providers Care Chemical Equipment Repairer Name Role Phone Haley Bautista MD Primary Care Provider [phone] Chata Guaman NP Primary Care Provider [phone] Encounter Details Date Type Department Care Team (Late st Contact Info) Description 07/29/2022 Orders Only [facility] [address] [place] [address] Scanning, Provider Social History Tobacco [...] on file Legal Sex Female 5:48 PM SOLAR ENERGY TECHNICIAN Gender Identity Not on file Sexual Orientation [...] COVID: Suspected 09/08/2024 09/08/2024 09/08/2024 12:43 PM SOLAR ENERGY TECHNICIAN Influenza, adult 09/08/2024 09/08/2024 09/15/2024 3:05 AM SOLAR ENERGY TECHNICIAN documented as of this encounter Care Teams Chemical Equipment Repairer Relationship Specialty Start Date End Date Haley Bautista MD PCP - General Family Practice 07/11/22 01/04/23 Chata Guaman NP [facility] [place] [address] PCP - General Nurse Practitioner 01/05/23 documented as of this encounter
--- OUTSIDE RECORDS SUMMARY | 2025-04-29 15:21 | XMS_ITS | Clinical Summary ---
Author Organization [facility] Address [address] [place] [address] Care Team Providers Care Outsole Leveler Name Role Phone Deniz Chata YAÑEZ Primary Care Provider [phone] Allergies No known active allergies Medications cholecalciferol [...] 08/22/2022 Assessment & Plan (08/22/2022 8:32 AM BEAM DOFFER): History of iron-deficiency associated with menses. Patient has a chronically low normal hemoglobin/hematocrit. Ddx: Iron deficiency versus thalassemia minor - will check iron panel Postural dizziness with presyncope 07/21/2022 Assessment & Plan (07/21/2022 2:54 PM BEAM DOFFER): Likely related to low blood sugar or [...] 06/11/2022 Assessment & Plan (08/19/2024 12:12 PM BEAM DOFFER): Great response to medication change., prozac in [...] 10/16/2021 Assessment & Plan (07/11/2022 4:09 PM BEAM DOFFER): Chronic. PHQ 2 score 0 сергей 7 score 10. Moderate anxiety -start BuSpar 5 mg twice daily risks/benefits and alternatives discussed - re-evaluate at follow-up in 6 weeks Vitamin B12 deficiency (non anemic) 03/04/2021 Migraine 10/09/2020 Tear of right acetabular labrum 08/09/2019 Trochanteric bursitis of right hip 05/10/2019 Hypertriglyceridemia 05/25/2018 Assessment & Plan (07/11/2022 4:10 PM BEAM DOFFER): Chronic and stable. Continue current medication. Will [...] day. Will refer to Ann-Marie chaudhary at [facility] for continuous glucose monitoring. Encouraged annual eye [...] needed Assessment & Plan (08/22/2022 8:34 AM BEAM DOFFER): Dm type 2 with (no complications) Recent A1C 4.7 No Neuropathy on initial foot exam Continue low carb diet. Patient will self refer to [facility] surgical services asst for counseling Next A1C - 10/2021. Consider metformin ER in future if needed Most recent Microalbumin - WNL Dilated retinal eye exam - up-to-date, request notes BP at goal <130/80 off ACEI - Continue to monitor Vaccines - COVID booster recommended Assessment & Plan (07/21/2022 2:57 PM BEAM DOFFER): Recent pre-syncopal episode noted, no abnormal exam findings. Likely related to low BP or low blood sugar. Continue to wean Trulicity as instructed, discussed quitting abruptly if pre-syncopal episodes become more frequent. See plan for dizziness/syncope above. Follow in 1 month with repeat labs, sooner if needed. Assessment & Plan (07/11/2022 4:12 PM BEAM DOFFER): Dm type 2 with (no complications) Recent [...] 05/25/2018 Assessment & Plan (08/22/2022 8:33 AM BEAM DOFFER): Chronic and stable. Recommend vitamin-D 1000 IU daily. Repeat vitamin-D lab 6 months Assessment & Plan (07/11/2022 4:10 PM BEAM DOFFER): Chronic and stable. Continue current medication. Will [...] Department Care Team Description 03/14/2025 Orders Only [facility] [address] [place] [address] Alexander Price, Middle insomnia (Primary Dx) 01/30/2025 Telephone [employer] [address] [place] [address] Jen Wood, CONTINUING EDUCATION DEAN from Last 3 Months Immunizations Immunization Administration [...] molina Diabetes melli tus; Anemia Mother Conchita moreno Anemia; Diabetes Paternal Grandfather Tru molina Diabet es mellitus; Asthma Paternal Grandmother Yumiko molina Asthma ; Relation Name Status Comments Father Sammy molina Mother Conchita moreno Paternal Grandfather Tru molina Paternal Grandmother Yumiko [...] on file Legal Sex Female 5:48 PM BEAM DOFFER Gender Identity Not on file Sexual Orientation [...] 36.8 C (98.3 F) 09/08/2024 12:26 PM BEAM DOFFER Respiratory Rate 18 09/08/2024 12:2 6 PM BEAM DOFFER Oxygen Saturation 97% 09/08/2024 12: 26 PM BEAM DOFFER Inhaled Oxygen Concentration - - Weight 115.4 [...] PATHOLOGY CH - 05/26/2024 10:16 AM CDT [facility] Department of Pathology [address] [place] [address], [place] [address] Final Report Note to Patients: This report [...] the details. Patient Name: CALISTA MOLINA Address: [address] [place], [place] [address] Gender: F : 1995 (Age: 28) Service: Location: N : [id number] [facility] #: [id number] Patient Type: SPECIMEN Taken: 05/24/2024 Received: 05/25/2024 Accessioned:: 05/25/2024 Reported: 05/26/2024 Physician(s): HOLLIS Steward WHNP Diagnosis: SOURCE OF SPECIMEN Imaged Thinprep Pap Test w/ Reflex HPV - Food Server Cytologic Material: STATEMENT OF ADEQUACY - Specimen satisfactory for interpretation; endocervical/transformation zone component absent or insufficient GENERAL CATEGORIZATION: - Negative for intraepithelial lesion or malignancy INTERPRETATION: - Predominance of coccobacilli consistent with shift in vaginal tai. Possible bacterial vaginosis CITLALY Willard(ASCP) Report Electronically Reviewed and Signed Out By CITLALY Willard(ASCP) 05/26/2024 10:16:07Specimen(s) Received: A: Imaged Thinprep Pap Test w/ Reflex HPV - Food Server Cytologic Material Clinical History: Last Menstrual Period: [...] determined by the Surgical Pathology Department at [facility] as part of an ongoing software quality assurance specialist program and in compliance with federally mandated [...] characteristics determined by the Surgical Pathology Department [facility]. It has not been cleared or approved by the U. S. Food and Drug Administration. Jen Wood NP LAB CYTOLOGY ORDERABLES Fin al Result PATHOLOGY [place] [id number] * eGFR (05/12/2024 11:48 AM CDT) eGFR [...] was last reviewed 2021. Testing performed by: [facility], [address] [place] [address]., [id number] Blood 05/12/2024 11:4 8 AM CDT 05/12/2024 7:16 PM CDT us Luis Roth DO LAB BLOOD ORDERABLES Final Result Performing Organization Address City/[facility]/ZIP Co de Phone Number OBDULIA [address] Department [place] [address] * Albumin Creatinine Ratio, Urine (02/18/2024 7:55 AM CDT) Albumin Ur 26.1 mg/L Comment: Interpretive Data No reference range established. Current interpretive data was last revised 2018. Testing performed by: [facility], [address] [place] [address]., [id number] Creatinine Ur 192.4 mg/dL OBDULIA BARRETT ([place]) Comment: Interpretive Data No reference range established. Current interpretive data was last revised 2018. Testing performed by: [address] [address] Albumin Creatinine Ratio, Ur 14 1 - 29 mg/g OBDULIA BARRETT ([place]) Comment:Testing performed by : [facility], [address] [place] [address]., [id number] Urine 02/18/2024 7:55 AM CDT 02/18/2024 1:59 PM CDT Narrative OBDULIA BARRETT ([place]) - 02/18/2024 3:29 PM CDT [id number] us Chata Guaman NP LAB URINE ORDERABLES Final Res ult [facility] [address] [place] [address] * Lipid panel (02/18/2024 7:29 AM CDT) [...] on 2018. Chol/HDL ratio 3 JESSIE BARRETT ([place]) Blood 02/18/2024 7:29 AM CDT 02/18/2024 8:19 AM CDT Chata Guaman NP LAB BLOOD ORDERABLES Final Res ult OBDULIA BARRETT ([place]) [address] [facility] Department [place] [address] * Diabetic Eye Exam (09/17/2023) Historical Provider HEALTH MAINTENANCE Final Result from Last 3 Months or Most Recently Relevant to Health Maintenance Insurance [facility] [employer] [employer] Address: [facility] [id number] [place] [address] [employer] Address: [facility] [id number] [place] [address] Care Teams Outsole Leveler Relationship Specialty Start Date End Date Chata Guaman NP [address] [place] [address] [place] [address] PCP - General Nurse Practitioner 01/05/23
[2025-04-29 15:38] LABS: EDSTREPNEGPOS1 Negative (Negative)
--- NOTE | 2025-04-29 15:54 | ED.URI ---
HPI - URI/Sore Throat General Chief Complaint: Upper Respiratory Infection Stated Complaint: sore throat/cough Time Seen by Provider: 04/29/25 15:45 Source: patient and RN notes reviewed Mode of arrival: ambulatory Limitations: no limitations History of Present Illness HPI Narrative: 29-year-old female presents [facility] complaining of sore throat, congestion, cough for the last 2 days. Patient recently treated here for strep about a month ago, and she said about mid March she had choking event at work where she had stridor breathing she was evaluated in discharge and has a scope scheduled at the end of the month. Patient is not sure if she is developing upper respiratory symptoms or if it is related to her choking problem. Patient denies any stridor, difficulty breathing, nausea, vomiting, diarrhea, chest pain, shortness of breath, fevers, body aches, chills, or any other upper respiratory symptoms. Patient has not taken anything to help with symptoms. Patient denies any significant past medical problems. Related Data Home Medications ?Medication ?Instructions ?Recorded ?Confirmed ?Last Taken ?Type norethindrone 1 mg-ethinyl 1 tablet PO DAILY 01/08/23 03/28/25 Unknown History estradiol 20 mcg (21)-iron 75 mg (7) tablet (08/15 (28)) doxepin 10 mg capsule 10 mg PO QHS 02/22/25 03/28/25 Unknown History dulaglutide 0.75 mg/0.5 mL 0.75 mg subcut WEEKLY 02/22/25 03/28/25 Unknown History subcutaneous pen injector (Trulicity) Allergies Allergy/AdvReac Type Severity Reaction Status Date / Time No Known Allergies Allergy Verified 04/29/25 15:26 Review of Systems Review of Systems: CONSTITUTIONAL: Denies fever, chills, or sweats. EYES: Denies visual changes, redness, or discharge. ENT: Denies rhinorrhea,, or otalgia. Positive for congestion and sore throat. CARDIOVASCULAR: Denies chest pain, palpitations, or edema. RESPIRATORY: Positive for cough. Negative for wheezing or Dyspnea. GASTROINTESTINAL: Denies abdominal pain, nausea, vomiting, or diarrhea. GENITOURINARY: Denies dysuria or hematuria. SKIN: Denies rash or itching. MUSCULOSKELETAL: Denies back pain, joint pain, or myalgia. NEUROLOGIC: Denies headache, numbness, or weakness. PSYCHIATRIC: Denies anxiety or depression. All other systems reviewed are negative, except as documented in HPI. [facility] Past Medical History Medical History Diabetes Anxiety Family History Family History Mother Depression Father Diabetes mellitus Sibling Depression Grandparent Lung cancer Grandparent Asthma Diabetes mellitus Social History Social History Smoking status: Never smoker Alcohol intake: never Substance use: never Lack of Transportation: No Lack of Food: Never True Current Housing: I Have Housing Concerned About Future Housing: No Difficulty Paying Gas/Electric Bills: No Difficulty Paying for Meds: No Currently Unemployed: No Education: High School Diploma/GED Difficulty w/ Childcare or Family Care: No Living arrangements: alone Occupation/Education: occupation Additional occupation/education comments: [employer] Gender identity (if verbalized by the patient): Female Agree to blood products: Yes Comments At the time of my signature, I reviewed and agree with the nursing past medical, surgical, social, and family history. There is no relevant family history pertinent to the patient complaint. Exam Narrative: GENERAL: This is a well-nourished, well-developed adult, in no apparent distress. They are non ill-appearing, nontoxic appearing. HEAD: normocephalic, atraumatic. EYES: Sclera clear/white. Conjunctiva normal. Vision is grossly intact. Extraocular movements intact EARS: External ears normal, auditory canals clear and without drainage, TMs normal without perforation. Hearing grossly intact. NOSE: External nose normal with no obvious nasal discharge, nasal turbinates erythematous,, no rhinorrhea. THROAT: Mucous membranes moist, posterior pharynx erythematous. Tonsils 2+ erythematous. Uvula midline. NECK: Neck supple, mild cervical lymphadenopathy, no masses or thyromegaly. CARDIOVASCULAR: Regular rate and rhythm without murmurs, gallops, or rubs. RESPIRATORY: Clear to auscultation. Breath sounds equal bilaterally. No wheezes, rales, or rhonchi. Normal respiratory exam. SKIN: warm, Dry, intact with no suspicious lesions or rash, good texture and turgor. NEURO: awake, alert, and oriented to person, place and time. There were no obvious focal neurologic abnormalities. EXTREMITIES: No joint tenderness, effusion, or edema noted. BACK: Nontender without deformity. No CVA tenderness. Course Course Emergency Course: Portions of this record may have been created with voice recognition software Level of Care: [facility] Visit Vital Signs Vital signs: Vital Signs Temperature 97.9 F 04/29/25 15:20 Pulse Rate 93 04/29/25 15:20 Respiratory Rate 20 04/29/25 15:20 Blood Pressure 136/80 04/29/25 15:20 Pulse Oximetry 98 04/29/25 15:20 Oxygen Delivery Room Air 04/29/25 15:20 Temperature 97.9 F 04/29/25 15:20 Pulse Rate 93 04/29/25 15:20 Respiratory Rate 20 04/29/25 15:20 Blood Pressure 136/80 04/29/25 15:20 Pulse Oximetry 98 04/29/25 15:20 Oxygen Delivery Room Air 04/29/25 15:20 Reviewed MDM - URI/Sore Throat MDM Narrative Medical decision making narrative: Rapid strep negative. Throat culture is pending. Symptoms likely viral in etiology. Given the amount of pain and swelling she is having along with her swollen tonsils will give her 1 time dose of dexamethasone. Recommend supportive therapy. Discussed physical exam findings. Advised supportive measures and signs/symptoms to go to the ER. Pt is appropriate for outpt treatment and f/u. Differential Diagnosis Differential diagnosis: Likely upper respiratory infection, sinusitis, viral infection, pharyngitis and other (Tonsillitis) Lab Data Attestation: I reviewed the patient's lab results. Labs: Lab Results 04/29/25 Range/Units 15:26 POC Grp A Strep Screen Negative (Negative) Critical Care Time Critical Care Time Critical Care Time: No Discharge Plan Discharge Clinical Impression: Acute viral tonsillitis Patient Disposition: Home Condition: Stable Instructions: Antibiotic Form, Tonsillitis (ED) Additional Instructions: Your rapid strep swab was negative today at [facility]. You will be notified in a few days if the culture comes back positive for strep, and appropriate antibiotics will be called in for you at that time. Your symptoms are likely due to a viral illness, which is not treated with antibiotics. Viral symptoms can be present for up to 10-14 days. Take the 1 time dose of dexamethasone as directed. Take Tylenol or ibuprofen as needed for fever or pain. Follow instructions on the bottle. Rest and stay hydrated. Follow up with your PCP in 3-5 days if symptoms are not improving. Go to the ER immediately if you develop chest pain, worsening symptoms, fevers, nausea, vomiting difficulty breathing or swallowing Patient Language: St Helenian Prescriptions: New dexamethasone 2 mg tablet 10 mg PO ONCE Qty: 5 0RF No Action Trulicity 0.75 mg/0.5 mL pen injector 0.75 mg subcut WEEKLY doxepin 10 mg capsule 10 mg PO QHS norethindrone-e.estradiol-iron [Junel FE 08/15 (28)] 1 mg-20 mcg (21)/75 mg (7) tablet 1 tablet PO DAILY (DME) FreeStyle Isidro 3 Sensor Device See Rx Instructions .ROUTE .COMPLEX Qty: 3 1RF Dose Instruction: USE DIRECTED; CHANGE SENSOR EVERY 2 WEEKS Rx Instructions: USE DIRECTED; CHANGE SENSOR EVERY 2 WEEKS cyanocobalamin (vitamin B-12) 1,000 mcg tablet, sublingual See Rx Instructions .ROUTE .COMPLEX Qty: 90 2RF Dose Instruction: PLACE ONE TABLET UNDER THE TONGUE AND ALLOW TO DISSOLVE FOR AT LEAST 30 SECONDS BEFORE SWALLOWING EVERY DAY Rx Instructions: PLACE ONE TABLET UNDER THE TONGUE AND ALLOW TO DISSOLVE FOR AT LEAST 30 SECONDS BEFORE SWALLOWING EVERY DAY fluoxetine 20 mg tablet See Rx Instructions .ROUTE .COMPLEX Qty: 90 2RF Dose Instruction: TAKE ONE TABLET BY MOUTH EVERY DAY Rx Instructions: TAKE ONE TABLET BY MOUTH EVERY DAY Follow-up/Referrals: Chata uGaman APRN [Primary Care Provider, Family Practice] Stand Alone Forms: Work/School Release IP Time of Disposition: 15:53
== END 2025-04-29 15:57 | disposition home or self-care (01) ==
PROVIDERS: PCP Nurse Practitioner Adult Health
DX: J03.90 Acute tonsillitis, unspecified (principal); E11.9 Type 2 diabetes mellitus without complications; Z79.85 Long-term (current) use of injectable non-insulin antidiabetic drugs; F41.9 Anxiety disorder, unspecified
CPT/HCPCS: 87081; 87880; 99213; G0463

== ENCOUNTER 2025-05-08 00:41 | Day surgery (SDC) | payer OTHER, SELFPAY ==
--- OUTSIDE RECORDS SUMMARY | 2008-09-23 19:00 | XMS_ITS | Continuity of Care Document ---
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 [address] [place] [address], [address], [place]. Family History Family Member Type Diagnosis Age At Onset No Information Immunizations Vaccine Date Status Comments DTAP administered Note: RA ; Sour ce: New Immunization Record [id number], PED/ADL administered Note: LA ; Source: N ew Immunization Record INJECTABLE POLIOVIRUS administered Note: RA ; Source: New Immunization Record HEP B VACCINE PED/ADOL administered Note: LA ; Source: New Immunization Record DTAP administered Note: RA ; Sour ce: New Immunization Record [id number], PED/ADL administered Note: LA ; Source: N ew Immunization Record ORAL POLIO administered Note: PO ; Sour ce: New Immunization Record HEP B VACCINE PED/ADOL administered Note: LA ; Source: New Immunization Record Payers Payer name Insurance type Covered republican ID Authoriza tion(s) No Information Social History [...]
[2025-05-04 13:24] VITALS: BMI 38.9
--- OUTSIDE RECORDS SUMMARY | 2025-05-08 02:26 | XMS_ITS | Encounter Summary ---
Author Organization [facility] Address [address] [place] [address] Phone Care Team Providers Care Liner Helper Name Role Phone Haley Bautista MD Primary Care Provider [phone] Chata Guaman NP Primary Care Provider [phone] Encounter Details Date Type Department Care Team (Late st Contact Info) Description 07/29/2022 Orders Only [facility] [address] [place] [address] Scanning, Provider Social History Tobacco [...] on file Legal Sex Female 5:48 PM EL TEACHER Gender Identity Not on file Sexual Orientation [...] COVID: Suspected 09/08/2024 09/08/2024 09/08/2024 12:43 PM EL TEACHER Influenza, adult 09/08/2024 09/08/2024 09/15/2024 3:05 AM EL TEACHER documented as of this encounter Care Teams Liner Helper Relationship Specialty Start Date End Date Haley Bautista MD PCP - General Family Practice 07/11/22 01/04/23 Chata Guaman NP [facility] [place] [address] PCP - General Nurse Practitioner 01/05/23 documented as of this encounter
--- OUTSIDE RECORDS SUMMARY | 2025-05-08 02:26 | XMS_ITS | Encounter Summary ---
Author Organization [facility] Healthcare Address [address] [place] [address] Care Team Providers Care Critical Care Clinical Nurse Specialist Name Role Phone Chata Guaman NP Primary Care Provider [phone] Haley Bautista MD Primary Care Provider [phone] Chata Guaman NP Primary Care Provider [phone] Encounter Details Date Type Department Care Team (Late st Contact Info) Description 02/05/2021 Telephone [facility] [address] [place] [address] Sharon Birch, RT Social History Tobacco [...] on file Legal Sex Female 5:48 PM LEMON PICKER Gender Identity Not on file Sexual Orientation Not on file documented as of this encounter Plan of Treatment Not on file documented as of this encounter Visit Diagnoses Not on filedocumented in this encounter Additional Health Concerns Infection Onset Date Last Indicated Resolved Time COVID: Suspected 06/22/2022 06/22/2022 06/23/2022 2:57 AM LEMON PICKER COVID: Suspected 10/27/2022 10/27/2022 10/27/2022 3:33 PM CDT COVID: Suspected 05/16/2024 05/16/2024 05/16/2024 1:50 PM CDT COVID: Suspected 09/08/2024 09/08/2024 09/08/2024 12:43 PM LEMON PICKER Influenza, adult 09/08/2024 09/08/2024 09/15/2024 3:05 AM LEMON PICKER documented as of this encounter Care Teams Critical Care Clinical Nurse Specialist Relationship Specialty Start Date End Date Chata Guaman NP PCP - General Nurse Practitioner 03/23/19 07/10/22 Haley Bautista MD PCP - General Family Practice 07/11/22 01/04/23 Chata Guaman NP [address] [place] [address] [place] [address] PCP - General Nurse Practitioner 01/05/23 documented as of this encounter
--- OUTSIDE RECORDS SUMMARY | 2025-05-08 02:26 | XMS_ITS | Clinical Summary ---
Author Organization [facility] Medical Office Building B Address [address] [place] [address] Care Team Providers Care Captain Cannery Tender Name Role Phone Deniz Chata YAÑEZ Primary Care Provider [phone] Allergies No known active allergies Medications cholecalciferol [...] another.) 0.4 mL 3 4 Active FreeStyle Iisdro 3 Sensor device 4 Active FLUoxetine (PROzac) [...] None at this time Orders for Calista Bowden to arrange Start amoxicillin as prescribed - [...] 08/22/2022 Assessment & Plan (08/22/2022 8:32 AM CARDIOVASCULAR OPERATING ROOM NURSE): History of iron-deficiency associated with menses. Patient has a chronically low normal hemoglobin/hematocrit. Ddx: Iron deficiency versus thalassemia minor - will check iron panel Postural dizziness with presyncope 07/21/2022 Assessment & Plan (07/21/2022 2:54 PM CARDIOVASCULAR OPERATING ROOM NURSE): Likely related to low blood sugar or [...] 06/11/2022 Assessment & Plan (08/19/2024 12:12 PM CARDIOVASCULAR OPERATING ROOM NURSE): Great response to medication change., prozac in [...] 10/16/2021 Assessment & Plan (07/11/2022 4:09 PM CARDIOVASCULAR OPERATING ROOM NURSE): Chronic. PHQ 2 score 0 сергей 7 score 10. Moderate anxiety -start BuSpar 5 mg twice daily risks/benefits and alternatives discussed - re-evaluate at follow-up in 6 weeks Vitamin B12 deficiency (non anemic) 03/04/2021 Migraine 10/09/2020 Tear of right acetabular labrum 08/09/2019 Trochanteric bursitis of right hip 05/10/2019 Hypertriglyceridemia 05/25/2018 Assessment & Plan (07/11/2022 4:10 PM CARDIOVASCULAR OPERATING ROOM NURSE): Chronic and stable. Continue current medication. Will [...] day. Will refer to Ann-Marie chaudhary at [facility] for continuous glucose monitoring. Encouraged annual eye [...] needed Assessment & Plan (08/22/2022 8:34 AM CARDIOVASCULAR OPERATING ROOM NURSE): Dm type 2 with (no complications) Recent A1C 4.7 No Neuropathy on initial foot exam Continue low carb diet. Patient will self refer to [facility] senior business development manager for counseling Next A1C - 10/2021. Consider metformin ER in future if needed Most recent Microalbumin - WNL Dilated retinal eye exam - up-to-date, request notes BP at goal <130/80 off ACEI - Continue to monitor Vaccines - COVID booster recommended Assessment & Plan (07/21/2022 2:57 PM CARDIOVASCULAR OPERATING ROOM NURSE): Recent pre-syncopal episode noted, no abnormal exam findings. Likely related to low BP or low blood sugar. Continue to wean Trulicity as instructed, discussed quitting abruptly if pre-syncopal episodes become more frequent. See plan for dizziness/syncope above. Follow in 1 month with repeat labs, sooner if needed. Assessment & Plan (07/11/2022 4:12 PM CARDIOVASCULAR OPERATING ROOM NURSE): Dm type 2 with (no complications) Recent [...] 05/25/2018 Assessment & Plan (08/22/2022 8:33 AM CARDIOVASCULAR OPERATING ROOM NURSE): Chronic and stable. Recommend vitamin-D 1000 IU daily. Repeat vitamin-D lab 6 months Assessment & Plan (07/11/2022 4:10 PM CARDIOVASCULAR OPERATING ROOM NURSE): Chronic and stable. Continue current medication. Will [...] Department Care Team Description 03/14/2025 Orders Only [facility] [address] [place] [address] [address] [facility] [place] [phone] Alexander Price DO Middle insomnia (Primary Dx) from Last 3 Months Immunizations Immunization Administration [...] History Relation Name Comments Diabetes Father Sammy bowden Diabetes melli tus; Anemia Mother Conchita bello Anemia; Diabetes Paternal Grandfather Tru bowden Diabet es mellitus; Asthma Paternal Grandmother Yumiko bowden Asthma ; Relation Name Status Comments Father Sammy bowden Mother Conchita bello Paternal Grandfather Tru bowden Paternal Grandmother Yumiko bowden Social History Tobacco Use Types Packs/Day Years [...] on file Legal Sex Female 5:48 PM CARDIOVASCULAR OPERATING ROOM NURSE Gender Identity Not on file Sexual Orientation [...] 36.8 C (98.3 F) 09/08/2024 12:26 PM CARDIOVASCULAR OPERATING ROOM NURSE Respiratory Rate 18 09/08/2024 12:2 6 PM CARDIOVASCULAR OPERATING ROOM NURSE Oxygen Saturation 97% 09/08/2024 12: 26 PM CARDIOVASCULAR OPERATING ROOM NURSE Inhaled Oxygen Concentration - - Weight 115.4 [...] Foot Exam 03/07/2025 03/07/2024, 01/05/2023 Covid-19 Vaccine (2024-2 6 season) 2025 12/07/2021, 11/16/2021 Influenza Vaccine [...] PATHOLOGY CH - 05/26/2024 10:16 AM CDT [facility] Department of Pathology [address] [place] [id number] Final Report Note to Patients: This report [...] and explain the details. Patient Name: CALISTA BOWDEN Address: [address] [place] [id number] Gender: F : 1995 (Age: 28) Service: Location: N : [id number] Hospital #: [id number] Patient Type: SPECIMEN Taken: 05/24/2024 Received: 05/25/2024 Accessioned:: 05/25/2024 Reported: 05/26/2024 Physician(s): HOLLIS Steward WHNP Diagnosis: SOURCE OF SPECIMEN Imaged Thinprep Pap Test w/ Reflex HPV - Cook [employer] Cytologic Material: STATEMENT OF ADEQUACY - Specimen satisfactory for interpretation; endocervical/transformation zone component absent or insufficient GENERAL CATEGORIZATION: - Negative for intraepithelial lesion or malignancy INTERPRETATION: - Predominance of coccobacilli consistent with shift in vaginal tai. Possible bacterial vaginosis CITLALY Willard(ASCP) Report Electronically Reviewed and Signed Out By CITLALY Willard(ASCP) 05/26/2024 10:16:07Specimen(s) Received: A: Imaged Thinprep Pap Test w/ Reflex HPV - Cook Cashier Food Prep Cytologic Material Clinical History: Last Menstrual Period: [...] determined by the Surgical Pathology Department at [facility] as part of an ongoing quality review trainer program and in compliance with federally mandated [...] characteristics determined by the Surgical Pathology Department [facility]. It has not been cleared or approved by the U. S. Food and Drug Administration. us Jen Wood SENIOR SOFTWARE ARCHITECT LAB CYTOLOGY ORDERABLES Fin al Result Performing Organization Address [facility]/State/ZIP Co de Phone Number PATHOLOGY [place] [phone] * eGFR (05/12/2024 11:48 AM CDT) eGFR [...] was last reviewed 2021. Testing performed by: [facility], [address] [place] [address]., [address] Blood 05/12/2024 11:4 8 AM CDT 05/12/2024 7:16 PM CDT us Luis Roth DO LAB BLOOD ORDERABLES Final Result Performing Organization Address City/[facility]/ZIP Co de Phone Number [facility] [address] Department [place] [address] * Albumin Creatinine Ratio, Urine (02/18/2024 7:55 AM CDT) Albumin Ur 26.1 mg/L Comment: Interpretive Data No reference range established. Current interpretive data was last revised 2018. Testing performed by: [address] [address] Creatinine Ur 192.4 mg/dL O[facility]IA [facility]RETT ([place]) Comment: Interpretive Data No reference range established. Current interpretive data was last revised 2018. Testing performed by: [address] [address] Albumin Creatinine Ratio, Ur 14 1 - 29 mg/g [facility] ([place]) Comment:Testing performed by : [address] [address] Urine 02/18/2024 7:55 AM CDT 02/18/2024 1:59 PM CDT Narrative [facility] ([place]) - 02/18/2024 3:29 PM CDT [phone] Chata Guaman NP LAB URINE ORDERABLES Final Res ult Performing Organization Address City/[facility]/ZIP Co de Phone Number [facility] ([place]) 1 [facility] Department [place] [address] * Lipid panel (02/18/2024 7:29 AM CDT) [...] on 2018. HDL 49 >=40 mg/dL [facility] ([place]) Comment: Interpretive Data Ages < or [...] on 2018. Chol/HDL ratio 3 JESSIE BARRETT ([place]) Blood 02/18/2024 7:29 AM CDT 02/18/2024 8:19 AM CDT Chata Guaman NP LAB BLOOD ORDERABLES Final Res ult [facility] NENA ([place]) 1 [facility] Department [place] [address] * Diabetic Eye Exam (09/17/2023) Historical Provider HEALTH MAINTENANCE Final Result from Last 3 Months or Most Recently Relevant to Health Maintenance Insurance [employer] Address: [facility] [id number] [place] [address] [employer] Address: [facility] [address] [place] [address] Care Teams Captain Cannery Tender Relationship Specialty Start Date End Date Chata Guaman NP [facility] [place] [address] PCP - General Nurse Practitioner 01/05/23
[2025-05-08 13:55] VITALS: BP 136/84; PULSE 92; RESP 18; TEMP 36.3; O2SAT 99
[2025-05-08 14:00] LABS: BEDSIDEPREGUCG Negative (Negative)
[2025-05-08] MEDS: SIMETHICONE ORAL SUSPENSION 20 MG/0.3 ML 30 ML BOTTLE 1.8 ML PO (14:10)
[2025-05-08] MEDS: LACTATED RINGERS 1,000 ML 150 ML IV CONT (14:11)
--- NOTE | 2025-05-08 14:48 | PM.IMHP ---
H&P: HPI History of Present Illness Date/Time: 05/08/25 14:48 Chief Complaint: Dysphagia-GERD Narrative: The patient has been experiencing reflux symptoms for a few years, currently controlled with omeprazole [id number]-pcx-[id number] which she takes daily. Approximately 1 month ago she had ?choking? episode with solid food. Since then, she has been experiencing intermittent dysphagia to solid food. She is now referred for EGD. Review of Systems Review of Systems: All systems reviewed & are unremarkable except as noted in HPI and below PMFSH Past Medical History Medical History Diabetes Anxiety Family History Family History Mother Depression Father Diabetes mellitus Sibling Depression Grandparent Lung cancer Grandparent Asthma Diabetes mellitus Social History Social History Smoking status: Never smoker Alcohol intake: never Substance use: never Lack of Transportation: No Lack of Food: Never True Current Housing: I Have Housing Concerned About Future Housing: No Difficulty Paying Gas/Electric Bills: No Difficulty Paying for Meds: No Currently Unemployed: No Education: High School Diploma/GED Difficulty w/ Childcare or Family Care: No Living arrangements: alone Occupation/Education: occupation 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[employer] Gender identity (if verbalized by the patient): Female Agree to blood products: Yes Meds Home Medications and Allergies Home Medications ?Medication ?Instructions ?Recorded ?Confirmed ?Type norethindrone 1 mg-ethinyl 1 tablet PO DAILY 01/08/23 05/08/25 History estradiol 20 mcg (21)-iron 75 mg (7) tablet (08/15 (28)) blood-glucose sensor (FreeStyle #3 ea 06/29/24 05/08/25 Rx Isidro 3 Sensor device) cyanocobalamin (vitamin B-12) See Rx Instructions .Route 01/24/25 05/08/25 Rx 1,000 mcg sublingual tablet .COMPLEX #90 tabs fluoxetine 20 mg tablet See Rx Instructions .Route 01/24/25 05/08/25 Rx .COMPLEX #90 tabs doxepin 10 mg capsule 10 mg PO QHS 02/22/25 05/08/25 History dulaglutide 0.75 mg/0.5 mL 0.75 mg subcut WEEKLY 02/22/25 05/08/25 History subcutaneous pen injector (Trulicity) phentermine 37.5 mg tablet 37.5 mg PO DAILY #30 tabs 05/08/25 05/08/25 Rx Allergies Allergy/AdvReac Type Severity Reaction Status Date / Time No Known Allergies Allergy Verified 05/08/25 13:52 Vital Signs Vital Signs - 24 hr 05/08/25 13:55 Temperature 97.3 F L Pulse Rate 92 Respiratory Rate 18 Blood Pressure 136/84 Pulse Oximetry 99 Oxygen Delivery Room Air Exam Const: General: cooperative and healthy appearing Resp: Effort & Inspection: normal respiratory effort and able to speak in complete sentences Auscultation: clear to auscultation bilaterally Cardio: Rate: regular rate Rhythm: regular rhythm GI: Inspection: normal to inspection GI Palp: No No hepatosplenomegaly present Auscultation: normal bowel sounds Rectal Exam: deferred Skin: General skin exam: normal color Psych: Appearance: grossly normal Mental Status: mental status grossly normal Assessment and Plan Assessment and plan (1) Dysphagia: Code(s): R13.10 - Dysphagia, unspecified Status: Acute Assessment and Plan: The patient is deemed a good candidate for the procedure. Consent signed. Will proceed.
--- NOTE | 2025-05-08 15:07 | S_PTH ---
PATIENT: Calista Molina LOC: [facility] U#:[id number] AGE/SX: 29/F ROOM: RE05/08/[address]: Srinivas Vazquez MD : 1995 BED: DIS: 05/08/2025 SPEC #: [id number] RECD: 05/09/25 08:22 STATUS: IZABELLA REIndira #: [id number] PERLA: 05/08/25 15:[address]: Srinivas Vazquez DEPT: [facility] Surgical RECD BY: Sofia Carbajal ENTERED: 05/09/25 08:23 SP TYPE: Surgical OTHR DR: Chata Guaman APRN Tissues: A - Esophageal Biopsy Procedures: Hematoxylin and Eosin Stain Gross and Microscopic Level 4
[2025-05-08 15:10] VITALS: BP 113/56; PULSE 109; RESP 24; O2SAT 93
--- NOTE | 2025-05-08 15:14 | WPDANESEPPF ---
Anes - Initial Pre Proc Eval Procedure: Operation Date: 05/08/25 14:30 Proposed Procedures p Esophagogastroduodenoscopy - Srinivas Vazquez MD Date/Time: 05/08/25 15:14 Surgeon: Srinivas Vazquez MD Pre Op Diagnosis: Dysphagia, unspecified Patient Data Age: 29 Gender: F Height: 1.7 m Weight: 110.8 kg Last Vital Signs Temp 36.3 C L 05/08/25 13:55 Pulse 92 05/08/25 13:55 Resp 18 05/08/25 13:55 BP 136/84 05/08/25 13:55 Pulse Ox 99 05/08/25 13:55 O2 Del Method Room Air 05/08/25 13:55 Allergies Allergy/AdvReac Type Severity Reaction Status Date / Time No Known Allergies Allergy Verified 05/08/25 13:52 Home Medications ?Medication ?Instructions ?Recorded ?Confirmed ?Type norethindrone 1 mg-ethinyl 1 tablet PO DAILY 01/08/23 05/08/25 History estradiol 20 mcg (21)-iron 75 mg (7) tablet (June08/15 (28)) blood-glucose sensor (FreeStyle #3 ea 06/29/24 05/08/25 Rx Isidro 3 Sensor device) cyanocobalamin (vitamin B-12) See Rx Instructions .Route 01/24/25 05/08/25 Rx 1,000 mcg sublingual tablet .COMPLEX #90 tabs fluoxetine 20 mg tablet See Rx Instructions .Route 01/24/25 05/08/25 Rx .COMPLEX #90 tabs doxepin 10 mg capsule 10 mg PO QHS 02/22/25 05/08/25 History dulaglutide 0.75 mg/0.5 mL 0.75 mg subcut WEEKLY 02/22/25 05/08/25 History subcutaneous pen injector (Trulicity) phentermine 37.5 mg tablet 37.5 mg PO DAILY #30 tabs 05/08/25 05/08/25 Rx Laboratory Tests 05/08/25 05/08/25 13:55 14:01 POC Capillary Glucose 97 mg/dl (65-105) POC Urine HCG, Qual Negative (Negative) Patient hx anesthesia problems: none Family hx anesthesia problems: none Results Review: All pre-operative results and documents have been reviewed as part of the pre-operative evaluation. [facility] Past Medical History Medical History Diabetes Anxiety Family History Family History Mother Depression Father Diabetes mellitus Sibling Depression Grandparent Lung cancer Grandparent Asthma Diabetes mellitus Social History Social History Smoking status: Never smoker Alcohol intake: never Substance use: never Lack of Transportation: No Lack of Food: Never True Current Housing: I Have Housing Concerned About Future Housing: No Difficulty Paying Gas/Electric Bills: No Difficulty Paying for Meds: No Currently Unemployed: No Education: High School Diploma/GED Difficulty w/ Childcare or Family Care: No Living arrangements: alone Occupation/Education: occupation 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 Informed Consent: The patient's anesthetic plan and its attendant risks and benefits were discussed with the patient/family/POA. Questions were solicited and answers provided to the satisfaction of the patient/family/POA.
[2025-05-08 15:20] VITALS: BP 107/66; PULSE 93; RESP 21; O2SAT 92
[2025-05-08 15:30] VITALS: BP 109/75; PULSE 91; RESP 20; O2SAT 93
--- NOTE | 2025-05-08 15:47 | SUR.PHASEII ---
Notified Dr. Lazaro that the patient was originally requiring 6L of oxygen to keep STATS at 92%. After patient was more awake and stopped coughing pt was 97% on room air. At time of discharge patient complained of SOB. Patient's oxygen saturation was 100% on room air. I assessed lungs sounds and all quadrants were clear. I requested Dr. Lazaro assess patient. Dr. Lazaro assessed patient and stated she is okay for discharge. After speaking with Dr. Lazaro the patient is okay for discharge and no longer complains of SOB just a cough. Gave patient appropriate phone numbers to call if she has any issues overnight.
== END 2025-05-08 15:50 | disposition home or self-care (01) ==
PROVIDERS: Anesthesiology; PCP Nurse Practitioner Adult Health; Referring Provider Nurse Practitioner Adult Health; Visit Provider Internal Medicine Gastroenterology
PROC: 0DJ08ZZ Inspection of Upper Intestinal Tract, Via Natural or Artificial Opening Endoscopic (ICD-10-PCS; CPT 43249; principal; 2025-05-08 14:30)
DX: K22.2 Esophageal obstruction (principal); K44.9 Diaphragmatic hernia without obstruction or gangrene; E11.9 Type 2 diabetes mellitus without complications; F41.9 Anxiety disorder, unspecified; E66.9 Obesity, unspecified; Z68.38 Body mass index [BMI] 38.0-38.9, adult; Z79.85 Long-term (current) use of injectable non-insulin antidiabetic drugs; Z80.1 Family history of malignant neoplasm of trachea, bronchus and lung
CPT/HCPCS: 43249; 82948; 88305; J2704; J7120